=== PATIENT | female | born 1950 | race Caucasian/White ===

== ENCOUNTER → 2018-06-20 09:03 | Outpatient (CLI) | payer MEDICARE ==
--- NOTE | ~2018-06-20 | EC ---
PATIENT:ELDA ROJAS DATE OF SERVICE: 06/20/18 SEX: F MEDICAL RECORD: [id number] DATE OF : 54 LOCATION:DREPLACED BY [facility] AGE OF PATIENT: 67 ADMISSION DATE: 06/20/18 REFERRING PHYSICIAN: INTERPRETING PHYSICIAN: ALL GARCIA MD ECHOCARDIOGRAM REPORT ECHO CHARGES 4 ECHO COMPLETE Date: 06/20/18 CLINICAL DIAGNOSIS: CP/HTN ECHOCARDIOGRAPHIC MEASUREMENTS (adult normal given) AC root (d.<3.7cm) 2.8 cm LV Septum d (<1.2 cm> 1.4 cm Valve Excursion 1.8 cm LV Septum (systole) 2.0 cm Left Atria (s.<4.0cm> 3.9 cm LVPW d(<1.2cm) 1.2 cm RV (d.<2.3cm) 2.3 cm LVPW (sytole) 2.0 cm LV diastole(<5.6CM) 4.8 cm MV E-F(>70mm/sec) cm LV systole 2.5 cm LVOT Diameter 1.8 cm MV exc.(>10mm) cm Est.ejection fraction (50-75%) % DOPPLER: LVIT cm/sec A 133 cm/sec E 108 cm/sec LA cm/sec RVSP 23.2 mmHg LVOT 110 cm/sec AOP1/2T m/s Asc. Ao 184 cm/sec RVOT 51.0 cm/sec RA cm/sec PA 84.0 cm/sec AV Gradient Peak 14.0 mmHg AV Mean 6.6 mmHg AV Area 1.8 cm MV Gradient Peak 9.0 mmHg MV Mean 2.9 mmHg MV Area cm COMMENTS: Research Hydrologist: Johnna RURUTIA ENTERPRISE Matte Cutter: Pauline Garcia TAPE# PACS Pericardial Effusion N DATE OF SERVICE: PROCEDURE: Transthoracic echocardiogram. FINDINGS: 1. Left ventricle shows evidence of left ventricular hypertrophy. Inflow characteristics consistent with diastolic dysfunction. Ejection fraction is 55%. 2. The left atrium is normal. 3. The mitral valve is normal. ECHOCARDIOGRAM REPORT [id number] ELDA ROJAS 4. The aortic valve appears to be normal. 5. The tricuspid valve is normal. 6. The RVSP is normal. 7. The right ventricle is normal. 8. The right atrium is normal. CONCLUSIONS: The patient has evidence of mild hypertensive heart disease, but otherwise normal echocardiogram for stated age. TRANSINT:[id number] Voice Confirmation ID: [id number] DOCUMENT ID: [id number] ALL GARCIA MD at [id number] CC: [id number] DICTATION DATE: 06/21/18929 MOTOR VEHICLE ESCORT DRIVER: 06/21/18 1100 DEP CLI 06/20/[address] [id number]
== END | disposition home or self-care (01) ==
LOC: D.ECHO 09:03
DX: M79.673 Pain in unspecified foot (principal); R07.9 Chest pain, unspecified; I10 Essential (primary) hypertension; I73.9 Peripheral vascular disease, unspecified